=== PATIENT | male | born 1990 | race Hispanic/Latino ===

== ENCOUNTER 2023-10-12 14:22 | Emergency (ER) | payer SELFPAY ==
[~2023-10-12] VITALS: Ht 172.7 cm; Wt 85.0 kg
[2023-10-12] MEDS ORDERED: AMOX/K CLAV875 M1 PO (16:34)
[2023-10-12 16:42] VITALS: BP 136/95
== END 2023-10-12 16:57 | disposition home or self-care (01) | DRG 153 ==
LOC: ED 14:22
DX: J02.9 Acute pharyngitis, unspecified (principal); F17.210 Nicotine dependence, cigarettes, uncomplicated; Z20.822 Contact with and (suspected) exposure to COVID-19